=== PATIENT | female | born 1960 | race Caucasian/White ===

== ENCOUNTER → 2017-05-22 | Outpatient (CLI) | payer OTHER ==
[~2017-05-22] MED LIST: ANTIVERT PO; AVAPRO PO; AVAPRO75 MG PO; BYETTA10 MCG/0.0 INJ; EFFEXOR100 MG PO; FLEXERIL PO; GLUCOPHAGE XR500 MG PO; GLUCOTROL PO; JANUVIA PO; LEVEMIR FLEX PEN; LEVEMIR100 U/ML SUBQ; METFORMIN PO; MOBIC PO; NEXIUM PO; PREVACID PO; PROZAC PO; ULTRAM PO; VICODIN 5/1 TAB 5/50 PO; VYTORIN PO; ZOFRAN PO
--- NOTE | ~2017-05-22 | CT55 ---
[facility] A Service of [facility] RADIOLOGY TEXT RESULTS PATIENT: VERONICA MAS LOCATION: [facility] : 64 UNIT #: [id number] AGE: [address]: Lizzy Jeronimo MD SEX: F ORDER DR: [id number] [address] [address] [id number] O MR#: [id number] Acc #: [id number] NAME: VERONICA MAS : 1960 SEX: F STUDY DATE/TIME: 05/22/2017 11:59 UNIT: [facility] ROOM: STUDY DESCRIPTION: CT Chest W Con Attending Physician: Lizzy Jeronimo M.D. Referring Physician: Lizzy Jeronimo M.D. Ordering Physician: Lizzy Jeronimo M.D. Primary Care Physician: Lizzy Jeronimo M.D. MEDICAL IMAGING REPORT This report is preliminary unless electronic signature is present. EXAM CT of the chest with contrast INDICATIONS Epigastric pain for a 8 days. Mid chest upper chest pain as well. TECHNIQUE CT of the chest was performed following the administration of IV contrast. Coronal and sagittal reformatted images were obtained. This CT exam was performed with one or more of the following radiation dose reduction techniques: automatic control, adjustment of mA and/or kV according to patient size, and iterative reconstruction. COMPARISON 01/03/2011 FINDINGS There is no airspace consolidation or suspicious pulmonary nodule. There is no evidence of suspicious lymphadenopathy. There is no pleural effusion. Limited imaging in the upper abdomen redemonstrates a left adrenal gland adenoma which is slightly increased in size compared with the prior study in 2010. Cholecystectomy. The bone windows are unremarkable. IMPRESSION No CT findings to explain the patient's symptoms Dictated by... Remy Mas M.D. THIS IS AN ELECTRONICALLY VERIFIED REPORT Remy Mas M.D. at 05/24/2017 9:30 AM [facility] A Service [facility] RADIOLOGY TEXT RESULTS PATIENT: VERONICA MAS LOCATION: [facility] #: [id number] : 64 UNIT #: [id number] AGE: [address]: Lizzy Jeronimo MD SEX: F ORDER DR: TERI/lupe TD: 05/23/2017 14:16 JOB #: [id number] MEDICAL IMAGING REPORT Page 1 of 1
[2017-05-22 11:35] LABS: POC - CREATININE 0.81 mg/dL (0.44-1.03); POC - GFR >60.0 mL/min (>60)
== END | disposition home or self-care (01) ==
LOC: SCT 11:15
PROVIDERS: Family Medicine
DX: R10.13 Epigastric pain (principal); I10 Essential (primary) hypertension; Z87.891 Personal history of nicotine dependence
CPT/HCPCS: 71260; 82565; Q9967